=== PATIENT | female | born 1975 | race Asian ===

== ENCOUNTER 2017-06-19 22:53 | Emergency (ER) | payer MEDICAID, OTHER ==
[~2017-06-19] VITALS: Ht 162.6 cm; Wt 87.0 kg
[2017-06-20] MEDS ORDERED: METOCLOPRAMIDE HCL 5MG TABLET PO ONE (01:30)
[2017-06-20] MEDS ORDERED: ASPIRIN 325MG TABLET PO ONE (01:30)
[2017-06-20 03:22] VITALS: BP 126/77
== END 2017-06-20 03:24 | disposition home or self-care (01) ==
LOC: ER 22:53
DX: G43.909 Migraine, unspecified, not intractable, without status migrainosus (principal); I10 Essential (primary) hypertension
CPT/HCPCS: 99283; Z7610; J8597

== ENCOUNTER 2017-12-28 09:37 | Emergency (ER) | payer OTHER ==
[~2017-12-28] VITALS: Ht 160 cm; Wt 58.0 kg
[2017-12-28] MEDS ORDERED: IBUPROFEN 800MG TABLET PO ONE (10:15)
[2017-12-28] MEDS ORDERED: HYDROCODONE/ACETAMINOPHEN 5/325MG TABLET PO ONE (10:15)
[2017-12-28 12:06] VITALS: BP 150/94
[2017-12-28] MEDS ORDERED: ONDANSETRON 4MG ODT PO ONE (12:15)
== END 2017-12-28 12:22 | disposition home or self-care (01) ==
LOC: ER 09:37
DX: S50.01XA Contusion of right elbow, initial encounter (principal); I10 Essential (primary) hypertension; W18.39XA Other fall on same level, initial encounter; Y93.89 Activity, other specified; Y92.89 Other specified places as the place of occurrence of the external cause; Y99.8 Other external cause status
CPT/HCPCS: 73080; 81025; 99284; Q0162